=== PATIENT | female | born 1945 | race Caucasian/White ===

== ENCOUNTER → 2019-08-15 | Outpatient (CLI) | payer MEDICARE ==
[~2019-08-15] MED LIST: ASPI325 PO; DIPH50 PO; RANI150 PO; ZOLP10 PO
== END | disposition home or self-care (01) ==
LOC: LAB SHORT 07:57 → PLD 07:57
DX: L81.4 Other melanin hyperpigmentation (principal); L82.1 Other seborrheic keratosis
CPT/HCPCS: 88305

== ENCOUNTER → 2023-02-24 | Outpatient (CLI) | payer MEDICARE ==
[2023-02-24 19:57] LABS: Albumin, Blood 3.6 g/dL (3.4-5.0); Albumin/Globulin Ratio 1.1 (0.8-1.8); Bilirubin, Total 0.6 mg/dL (0.1-1.0); Bun/Creatinine Ratio 18.2 (12.0-20.0); Calcium, Blood 9.4 mg/dL (8.5-10.1); Creatinine, Blood 1.1 mg/dL (0.40-1.00); Globulin, Blood 3.3 g/dL (2.2-4.0); Phosphorus, Blood 3.8 mg/dL (2.5-4.9); Potassium, Blood 3.6 mmol/L (3.5-5.5); Total Protein, Blood 6.9 g/dL (6.4-8.2)
== END | disposition home or self-care (01) ==
LOC: LAB SHORT 12:40 → LAB 12:40
PROVIDERS: Internal Medicine Hematology & Oncology
DX: N18.2 Chronic kidney disease, stage 2 (mild) (principal); D51.8 Other vitamin B12 deficiency anemias
CPT/HCPCS: 80053; 82607; 82746; 84100